=== PATIENT | female | born 1985 | race African-American/Black ===

== ENCOUNTER 2022-06-23 17:51 | Emergency (ER) | payer BC, OTHER ==
--- NOTE | 2022-06-23 18:10 | NUR ---
CALLED TO TRIAGE,NO ANSWER
--- NOTE | 2022-06-23 18:50 | NUR ---
CALLED TO TRIAGE,NO ANSWER
--- NOTE | 2022-06-23 20:04 | NUR ---
CALLED FOR [facility]ATER[facility] NOT IN WAITING ROOM
== END 2022-06-23 20:05 | disposition left against medical advice (07) ==
LOC: ER 17:53
DX: Z53.21 Procedure and treatment not carried out due to patient leaving prior to being seen by health care provider (principal)